=== PATIENT | male | born 2000 | race Caucasian/White ===

== ENCOUNTER 2021-06-15 18:11 | Emergency (ER) | payer OTHER, SELFPAY ==
[2021-06-15] VITALS (8 sets, daily range): BP systolic 113–120; BP diastolic 60–74; PULSE 47–77; RESP 16–24; TEMP 36.3; O2SAT 98–100; BMI 29.9
--- NOTE | 2021-06-15 18:40 | ED.WEAKNESS ---
HPI - Weakness General Chief complaint: Weakness Stated complaint: ILL, Time Seen by Provider: 06/15/21 18:40 Source: patient Mode of arrival: Ambulatory Limitations: no limitations History of Present Illness HPI Narrative: The patient awoke in the middle the night, not feeling well. He had nausea. He went to his bathroom, noted he was pale and diaphoretic. He felt a little better after splashing himself with cold water. He went to work today, with generalized myalgia, headache and nausea persist. He is drinking water. He has not had fever. He has not had diarrhea. He had a cold cold sandwich for dinner last night, no obvious, old food. He has no chronic medical problems. He is on no prescription medications. He has not been drinking alcohol. He has received COVID-19 vaccines. He has not been exposed to obvious cases of COVID. He has not been around others with similar complaints. Related Data Allergies Allergy/AdvReac Type Severity Reaction Status Date / Time No Known Drug Allergies Allergy Verified 06/15/21 18:22 Review of Systems Constitutional Constitutional: Denies anorexia, Reports body ache(s), Reports chills, Reports fatigue, Denies fever(s), Reports headache(s), Reports malaise, Reports night sweats, Reports poor appetite and Denies weakness Eyes Eyes: Denies blurry vision and Denies change in vision ENT Ears, Nose, Mouth, and Throat: Denies facial pain, Reports headache(s), Denies sinus pain and Denies sinus pressure Cardiovascular Cardiovascular: Denies chest pain, Denies rapid heart rate and Denies dyspnea Respiratory Respiratory: Denies cough and Denies dyspnea Gastrointestinal Gastrointestinal: Reports as per HPI Genitourinary Genitourinary: Denies dysuria and Denies urinary frequency Musculoskeletal Musculoskeletal: Denies back pain and Denies myalgias Integumentary/Breasts Skin/Breast: Denies lesions and Denies rash Neurologic Neurologic: Denies confusion, Reports headache(s) and Denies weakness Psychiatric Psychiatric: Denies confusion Endocrine Endocrine: Reports fatigue Hematologic/Lymphatic On Anticoagulants: No Patient History Medical History No significant past medical history Surgical History (Updated 06/15/21 @ 19:07 by Pb Cordoba MD) No significant past surgical history Social History Smoking Status: Never smoker Smoking Status: Never smoker Substance Use Type: does not use Exam Initial Vital Signs Initial Vital Signs: Vital Signs Temperature 97.4 F L 06/15/21 18:16 Pulse Rate 61 06/15/21 18:16 Respiratory Rate 16 06/15/21 18:16 Blood Pressure 113/64 06/15/21 18:16 Pulse Oximetry 99 06/15/21 18:16 Const General: cooperative, healthy appearing and comfortable Orientation: Orientation (Intact) [facility] Head: normocephalic and occipital foramen tenderness Face and sinus: sinuses nontender Mouth: oral mucosae normal Eyes General: appearance normal, both eyes and all related structures Neck Neck: supple and No lymphadenopathy Chest Chest: normal inspection of the chest Resp Effort & Inspection: normal respiratory effort Cardio Rate: regular rate Rhythm: regular rhythm Heart Sounds: S1 normal, S2 normal and no murmurs GI Inspection: normal to inspection Palpation: soft, No guarding and No tender Auscultation: normal bowel sounds Back/Spine/Pelvis Back: No CVA tenderness Skin General: no rashes or lesions noted Neuro General: patient alert, patient awake, patient oriented x3 and no focal motor deficits Extrem General: normal to inspection and no calf tenderness Psych Mental Status: mental status grossly normal Course Course Course Narrative: Labs are reassuring. Patient is feeling better after receiving Zofran and a fluid bolus. He has viral syndrome. All discharge him home with a Zofran dispense pack, and a work note for tomorrow. I anticipate his symptoms will resolve quickly. Orders Ordered: ED Orders 06/15/21 19:15 COVID19 -Nasal swab/Pre-Proc Stat 06/15/21 19:45 Complete Blood Count AUTO DIFF Stat Comprehensive Metabolic Panel Stat Lipase Stat Discontinued Medications Sodium Chloride (Normal Saline 0.9%) 1,000 mls @ 1,000 mls/hr IV BOLUS ONE Stop: 06/15/21 20:00 Last Admin: 06/15/21 19:43 Dose: 1,000 mls/hr Documented by: SIDDHARTHA Ondansetron HCl (Ondansetron 4 Mg/2 Ml Inj) 4 mg IV NOW ONE Stop: 06/15/21 19:02 Last Admin: 06/15/21 19:43 Dose: 4 mg Documented by: SIDDHARTHA Vital Signs Vital signs: Vital Signs - 8 hr 06/15/21 18:16 06/15/21 19:46 06/15/21 20:00 Temperature 97.4 F L Pulse Rate 61 47 L 52 L Respiratory Rate 16 18 Blood Pressure 113/64 Pulse Oximetry 99 99 100 06/15/21 20:30 06/15/21 20:43 06/15/21 20:44 Temperature Pulse Rate 47 L 77 Respiratory Rate 16 18 Blood Pressure 120/60 Pulse Oximetry 98 98 MDM - Weakness Lab Data Result diagrams: 06/15/21 19:45 06/15/21 19:45 Labs: Lab Results 06/15/21 06/15/21 06/15/21 Range/Units 19:15 19:45 19:45 WBC 5.8 (4.5-11.0) X10^3/uL RBC 4.59 (4.5-5.9) X10^6/uL Hgb 13.9 (13.5-17.5) g/dL Hct 39.7 L (41-53) % MCV 86.6 (80-100) fL MCH 30.3 (26-34) PG MCHC 34.9 (30-36) % RDW 13.0 (11.6-14.8) % Plt Count 204 (150-400) X10^3/uL Neut % (Auto) 64.1 (50-75) % Lymph % (Auto) 21.8 L (25-40) % [place] % (Auto) 9.8 (3-14) % Eos % (Auto) 3.6 (2-4) % Baso % (Auto) 0.7 (0-2) % Neut # (Auto) 3700 (6455-1951) /uL Lymph # (Auto) 1300 (6796-2643) /uL [place] # (Auto) 600 (0-900) /uL Eos # (Auto) 200 (0-450) /uL Baso # (Auto) 0 (0-100) /uL Sodium 139 (137-145) mmol/L Potassium 4.0 (3.4-5.1) mmol/L Chloride 104 (98-107) mmol/L Carbon Dioxide 26 (22-32) mmol/L BUN 12 (9-20) mg/dL Creatinine 0.88 (0.66-1.25) mg/dL Estimated GFR > 60.0 (>60) mL/min BUN/Creatinine Ratio 13.6 (6-22) Glucose 101 H (70-100) mg/dL Calcium 9.1 (8.4-10.2) mg/dL Total Bilirubin 0.5 (0.2-1.3) mg/dL AST 48 (17-59) IU/L ALT 61 H (<50) IU/L Alkaline Phosphatase 66 (38-126) U/L Total Protein 7.6 (6.3-8.2) g/dL Albumin 4.5 (3.5-5.0) g/dL Globulin 3.1 (1.7-4.1) g/dL Albumin/Globulin Ratio 1.5 (1.0-2.8) Lipase 49 (23-300) U/L SARS-CoV-2 (PCR) Negative (Negative) Urine Dip Bedside Urine Glucose Negative Bedside Urine Bilirubin - Negative Bedside Urine Ketone - Negative Urine Specific [place] 1.015 Bedside Urine Occult Blood - Negative Bedside Urine pH 6.0 Bedside Urine Protein - Negative Bedside Urine Urobilinogen - Negative Bedside Urine Nitrite - Negative Bedside Urine Leukocytes - Negative Esterase Discharge Plan Departure Patient Disposition: Home Clinical Impression: Acute viral syndrome Instructions: DI for Viral Syndrome Activity Restrictions/Additional Instructions: Rest at your apartment tomorrow. Tylenol 2 tablets every 4 hours as needed for body aches or fever. Zofran every 4 hours as needed for nausea. No work tomorrow. Return here as necessary. Stand Alone Forms: Work Release Note
[2021-06-15 19:36] LABS: COVID19 -Nasal RAPID Negative (Negative)
[2021-06-15] MEDS: ONDANSETRON 4 MG/2 ML INJ IV (19:43)
[2021-06-15] MEDS: SODIUM CHLORIDE 0.9% 1,000 ML 1000 ML IV (19:43)
[2021-06-15 20:11] LABS: Add Manual Diff / Slide Review NO; Basophils Absolute Auto 0 /uL (0-100); Basophils Percent Auto 0.7 % (0-2); Eosinophils Absolute Auto 200 /uL (0-450); Eosinophils Percent Auto 3.6 % (2-4); Hematocrit 39.7 % (41-53); Hemoglobin 13.9 g/dL (13.5-17.5); Lymphocytes Absolute Auto 1300 /uL (1100-4500); Lymphocytes Percent Auto 21.8 % (25-40); Mean Corpuscular HGB Conc 34.9 % (30-36); Mean Corpuscular Hemoglobin 30.3 PG (26-34); Mean Corpuscular Volume 86.6 fL (80-100); Monocytes Absolute Auto 600 /uL (0-900); Monocytes Percent Auto 9.8 % (3-14); Neutrophils Absolute Auto 3700 /uL (1500-7000); Neutrophils Percent Auto 64.1 % (50-75); Platelet Count 204 X10^3/uL (150-400); Red Blood Cell Count 4.59 X10^6/uL (4.5-5.9); White Blood Cell Count 5.8 X10^3/uL (4.5-11.0)
[2021-06-15 20:14] LABS: Alanine Aminotransferase 61 IU/L (<50); Albumin 4.5 g/dL (3.5-5.0); Albumin Globulin Ratio 1.5 (1.0-2.8); Alkaline Phosphatase 66 U/L (38-126); Aspartate Aminotransferase 48 IU/L (17-59); BUN Creatinine Ratio 13.6 (6-22); Bilirubin Total 0.5 mg/dL (0.2-1.3); Blood Urea Nitrogen 12 mg/dL (9-20); Calcium 9.1 mg/dL (8.4-10.2); Carbon Dioxide 26 mmol/L (22-32); Chloride 104 mmol/L (98-107); Estimated Glomerular Filt Rate > 60.0 mL/min (>60); Globulin 3.1 g/dL (1.7-4.1); Glucose 101 mg/dL (70-100); HEMOLYSIS < 15 (0-50); Lipase 49 U/L (23-300); Sodium 139 mmol/L (137-145); Total Protein 7.6 g/dL (6.3-8.2)
[2021-06-15] MEDS: ONDANSETRON 4 MG ODT PREPACK 1 BOTTLE MISC (21:03)
== END 2021-06-15 21:11 | disposition home or self-care (01) ==
PROVIDERS: Emergency Provider Emergency Medicine
DX: B34.9 Viral infection, unspecified (principal); Z20.822 Contact with and (suspected) exposure to COVID-19
CPT/HCPCS: 36415; 80053; 81003; 83690; 85025; 87635; 96374; 99284; C9803; J2405